=== PATIENT | female | born 2005 | race Caucasian/White ===

== ENCOUNTER 2025-08-17 10:02 | Emergency (ER) | payer MEDICAID ==
[~2025-08-17] VITALS: Ht 160 cm; Wt 44.5 kg
--- NOTE | 2025-08-17 10:09 | Physician Documentation ---
History of Present Illness ~ Chief Complaint: Syncope Stated Complaint: ALOC Time Seen by MD: 10:07 HPI 24-year-old female presents to the ED with a complaint of losing consciousness not being able to stay awake. Boyfriend note the patient presents very nervous stating that he does not know what is happening to the patient in the he does not realize she has a history of liver failure. She has been drinking heavily recently. He was unable to provide her full name, he said initially that her name is "Amira". When prompted, the patient provided her full name which was Antonieta Bazan. Boyfriend and the patient reportedly acknowledge using cocaine yesterday Day of Onset: Aug 17, 2025 Medication Reconciliation Allergies: Coded Allergies: No Known Allergies (Unverified , 08/17/25) Physical Exam Vital Signs: Temperature: 98.8, Source: Temporal, Heart Rate: 76, Respiratory Rate: 12, BP: 134/93, Pulse Oximetry: 100, Weight: 44.550 Oxygen Flow Rate: 0 Physical Exam General: Alert, no apparent distress. Respiratory: Lungs clear, no respiratory distress. Chest: No accessory muscle use. Cardiovascular: Regular rate and rhythm, no murmurs. Gastrointestinal: Soft, nontender, nondistended. Bowels sounds present. Extremities: Normal range of motion, no deformity. Neurologic: Oriented x4. Psychiatric: Normal mood and affect. Skin: Normal color, warm and dry. No edema, no ecchymosis. Progress Results/Orders Results/Orders Completed Orders - ASHLEY CHAUDHARI DOMESTIC TECHNICIAN Hcg, Ur Ql (08/17/25 10:09) Cbc/Diff (08/17/25 10:09) BMP (08/17/25 10:09) Lipase (08/17/25 10:09) CMP (08/17/25 10:09) Ua W/Microscopic, Cult If Ind (08/17/25 10:20) Drug Screen, Urine (08/17/25 10:50) Normal Saline 1000ml (0.9% Sodium Chlori (08/17/25 11:00) Medications Received in ER Medications (Trade) Dose Ordered Sig/David Route PRN Reason Start Time Stop Time Status Last Admin Dose Admin (0.9% sodium chloride (NS) 1000ml IV soln) 1,000 ml ONCE ONCE IVB 08/17/25 11:00 08/17/25 11:01 DC 08/17/25 11:04 1,000 ML Vital Signs 08/17/25 08/17/25 08/17/25 10:04 11:09 12:06 Temp 98.7 98.7 98.7 Pulse 76 68 73 Resp 12 13 16 B/P (MAP) 134/93 117/88 (98) 115/72 Pulse Ox 100 100 99 O2 Flow Rate 0 0 Laboratory Tests Test 08/17/25 10:07 08/17/25 10:20 08/17/25 11:00 White Blood Count 5.6 Red Blood Count 4.74 Hemoglobin 14.5 Hematocrit 41.6 Mean Corpuscular Volume 87.7 Mean Corpuscular Hemoglobin 30.6 Mean Corpuscular Hemoglobin Concent 34.9 Red Cell Distribution Width 12.9 Platelet Count 224 Mean Platelet Volume 10.5 H Neutrophils (%) (Auto) 60.6 Lymphocytes (%) (Auto) 26.7 Monocytes (%) (Auto) 11.0 Eosinophils (%) (Auto) 0.2 Basophils (%) (Auto) 1.5 H Neutrophils # (Auto) 3.4 Lymphocytes # (Auto) 1.5 Monocytes # (Auto) 0.6 Eosinophils # (Auto) 0.0 Basophils # (Auto) 0.1 CBC Comment Sodium Level 141 Potassium Level 3.8 Chloride Level 104 Carbon Dioxide Level 21.5 L Anion Gap 16 Blood Urea Nitrogen 9 Creatinine 0.86 Estimated GFR/1.73 m2 84 BUN/Creatinine Ratio 10.5 Glucose Level 119 H Glucometer 118 H Calcium Level 9.2 Total Bilirubin 2.6 H Aspartate Amino Transf (AST/SGOT) 76 H Alanine Aminotransferase (ALT/SGPT) 71 Alkaline Phosphatase 64 Total Protein 7.7 Albumin 4.4 Globulin 3.3 Albumin/Globulin Ratio 1.3 Lipase 201 H Chemistry Comments Urine Specimen Description Voided Urine Color Yellow Urine Clarity Slightly cloudy Urine pH 8.0 Urine Specific [place] 1.020 Urine Protein Trace Urine Glucose (UA) Negative Urine Ketones Trace H Urine Occult Blood Negative Urine Nitrite Negative Urine Bilirubin Negative Urine Urobilinogen 2.0 H Urine Leukocyte Esterase Negative Urine RBC 3-10 Urine WBC 0-4 Urine Squamous Epithelial Cells Many Urine Transitional Epithelial Cells Few Urine Renal Cells Few Urine Bacteria 1+ Urine Mucus Few Urine Culture Indicated Not ind Volume Urine Centrifuged 10 ml Urine HCG, Qualitative Negative Urine Comment Urine Opiates Screen Negative Urine Methadone Screen Negative Urine Fentanyl Screen Negative Urine Barbiturates Screen Negative Urine Phencyclidine Screen Negative Urine Amphetamines Screen Negative Urine Benzodiazepines Screen Negative Urine Cocaine Screen Positive Urine Cannabinoids Screen Positive Drug Screen Comment Medical Decision Making Additional information obtaine: old records Findings 19-year-old female had reassuring vitals upon her arrival and throughout her stay she appears more alert and responsive after receiving fluid bolus and having time to be observed. Test positive for cocaine and marijuana. In addition her labs indicate likely alcohol abuse. Correlate with her given history from her boyfriend I do not see any evidence of an infectious process and she reports feeling better. Advised her to stop using recreational drugs and reduce alcohol or cease alcohol use Differential Dx:Considerations: Include: dehydration, Delirium Tr., DKA, encephalopathy, hypercalcemia, HHNC, hypoglycemia, hypernatremia, hyponatremia, hypoxia, postictal, closed head injury, C-spine injury, CVA, mass lesion, subarachnoid hemorrhage, drug overdose, encephalopathy, ETOH intoxication, medication toxicity, infection - meningitis, infection - sepsis, infection - UTI, heart failure, renal failure, respiratory failure, hyperthermia, hypothermia, other Departure Disposition: 01 HOME / SELF CARE / HOMELESS Impression: Primary Impression: Dehydration Additional Impressions: Cannabinoid hyperemesis syndrome Cocaine abuse ETOH abuse Condition: Improved Discharge Instructions: Dehydration, Adult Referrals: NO PRIMARY CARE PROVIDER (PCP) Signature Scribe Signature: f Attestation: Scribed for Ashley Chaudhari Pin Setter by Ashley Charles NP . 08/17/25 18:29 ASHLEY CHAUDHARI DOMESTIC TECHNICIAN Aug 17, 2025 10:09
[2025-08-17 10:32] LABS: CREATININE 0.86 MG/DL (0.40-0.90); TOTAL CARBON DIOXIDE 21.5 MMOL/L (24-32); eCRCL 73 ML/MIN; eGFR 84 ML/MIN
[2025-08-17 10:42] LABS: LEUKOCYTE ESTERASE ,URINE NEGATIVE (Neg); NITRITES, URINE NEGATIVE (Neg); OCCULT BLOOD,URINE NEGATIVE (Neg); URINE HCG NEGATIVE (NEG)
[2025-08-17 10:44] LABS: MEAN PLATELET VOLUME 10.5 FL (7.4-10.4); RED CELL DISTRIBUTION WIDTH 12.9 % (11.5-14.5)
[2025-08-17 10:45] LABS: UA COLLECTION TYPE VOIDED
[2025-08-17 10:56] LABS: MUCUS STRANDS FEW /LPF (Neg); RENAL CELLS, URINE FEW /HPF; SQUAMOUS EPITHELIAL CELL,UR MANY /LPF (FEW)
[2025-08-17] MEDS: normal saline 1000ML IV soln IVB ONE (11:04)
[2025-08-17 11:18] LABS: URINE AMPHETAMINE SCREEN NEGATIVE (Neg); URINE BARBITUATE SCREEN NEGATIVE (Neg); URINE BENZODIAZEPINES SCREEN NEGATIVE (Neg); URINE CANNABINOID SCREEN POSITIVE (Neg); URINE COCAINE SCREEN POSITIVE (Neg); URINE METHADONE SCREEN NEGATIVE (Neg); URINE OPIATE SCREEN NEGATIVE (Neg); URINE PHENCYCLIDINE SCREEN NEGATIVE (Neg)
[2025-08-17 12:06] VITALS: BP 115/72; PULSE 73; RESP 16; TEMP 98.7; O2SAT 99
== END 2025-08-17 12:09 | disposition home or self-care (01) ==
LOC: EDBD 10:04 → ER 10:04
DX: E86.0 Dehydration (principal); F14.10 Cocaine abuse, uncomplicated; F10.10 Alcohol abuse, uncomplicated; R11.16 Cannabis hyperemesis syndrome; Y90.9 Presence of alcohol in blood, level not specified; Z79.899 Other long term (current) drug therapy
CPT/HCPCS: 36415; 80053; 80305; 81001; 81025; 82948; 83690; 85025; 96360; 99283; J7030; C1758